=== PATIENT | female | born 1985 | race Caucasian/White ===

== ENCOUNTER 2023-02-24 08:17 | Outpatient (AMB) | payer OTHER, SELFPAY ==
--- NOTE | 2023-02-24 08:57 | AM.OFFWIN_ITS ---
Intake Vital Signs 02/24/23 09:03 Height 5 ft 7 in Weight 115 lb BMI 18.0 BP 110/70 Blood Pressure Location Lt brachial Position Sitting Pulse 115 H Pulse Source Pulse Oximeter Temp 98.9 F Temp Source Temporal Artery Scan Pulse Oximetry (%) 97 Intake Visit Reasons: [employer] fever/no Spleen/Body aches Intake Note: pt is here for c/o fever and body aches, states she got bit by a tick a week ago but not sure if thats related Patient Tobacco Use Status: Never used Tobacco Allergies No Known Allergies Allergy (Verified 02/24/23 09:27) Medication List - Last Reconciled 02/24/23 by Fernando Cheng MD No Known Home Meds Do you need a note to return to daycare/school/sports/work: Yes HPI [employer] fever/no Spleen/Body aches HPI Details 37-year-old female presents to the [facility] for a sick visit. Patient is reporting symptoms of fever for the past 2 days. Minimal chills. She had a tick bite 2 weeks ago. No nausea or vomiting. No difficulty urinating. History of a splenectomy years ago. [facility] Social History Patient Tobacco Use Status: Never used Tobacco Physical Exam Vital Signs: Last Vital Signs Temp 98.9 F 02/24/23 09:03 Pulse 115 H 02/24/23 09:03 BP 110/70 02/24/23 09:03 Pulse Ox 97 02/24/23 09:03 BMI result Body Mass Index 18.0 Const General: cooperative and healthy appearing Nutritional Appearance: well nourished Orientation/consciousness: patient oriented x3 Limitations: no limitations HEENT Head: Yes normal to inspection Eyes General: appearance normal, both eyes and all related structures Neck Neck: Yes normal visual inspection Chest Chest palpation & inspection: normal palpation of entire chest wall Resp Effort & Inspection: normal respiratory effort Neuro General: patient oriented x3 Assessment & Plan Assessment & Plan (1) Febrile illness: Code(s): R50.9 - Fever, unspecified Plan: Amoxicillin for 10 days. Lyme testing in 2 weeks. Coding Level of Care Code Est Pt Level 3 (17075) Diagnoses Febrile illness R50.9
[2023-02-24 09:03] VITALS: BP 110/70; PULSE 115; TEMP 37.2; O2SAT 97; BMI 18.0
== END 2023-02-24 09:41 | disposition home or self-care (01) ==
PROVIDERS: Visit Provider Internal Medicine
DX: R50.9 Fever, unspecified (principal)
CPT/HCPCS: 99213